=== PATIENT | female | born 1950 | race African-American/Black ===

== ENCOUNTER → 2021-08-19 | Outpatient (CLI) | payer MEDICARE ==
--- NOTE | 2021-08-20 10:33 | RAD ---
KUB without comparison for abdominal pain and constipation. FINDINGS: There is scattered abdominal bowel gas in a nonobstructive pattern with moderate amount of stool. Postsurgical changes are seen in the pelvis. Degenerative changes of the spine are mild and pr imarily involve L4-5 and L5-S1. IMPRESSION: 1. Nonobstructive nonspecific bowel gas pattern. Electronically signed by: Ethan Hinson MD (08/20/2021 10:31 AM) [id number]
== END ==
LOC: RAD 12:29
PROVIDERS: ATTEND Physician Assistant
DX: M47.817 Spondylosis without myelopathy or radiculopathy, lumbosacral region (principal); K59.00 Constipation, unspecified; Z98.890 Other specified postprocedural states
CPT/HCPCS: 74019

== ENCOUNTER → 2021-08-27 | Outpatient (CLI) | payer MEDICARE ==
--- NOTE | 2021-08-27 17:01 | RAD ---
EXAMINATION: XR LUMBAR SPINE 2-3V CLINICAL HISTORY: Severe lower back pain, no trauma TECHNIQUE: XR LUMBAR SPINE 2-3V Number of Images/Views: 3 COMPARISON: None FINDINGS: Normal anatomic alignment. No evidence of acute fracture or spondylolisthesis. Degenerative disc dise ase in lower lumbar spine, moderate at L4-5 and mild at L5-S1. Multilevel facet arthropathy, greatest at L4-5 and L5-S1. Degenerative changes bilateral SI joints, incompletely evaluated. Vascular calcif ications. Surgical clips projected over the right pelvis. IMPRESSION: Lumbar degenerative disc disease and facet arthropathy as described, greatest at L4-5 and L5-S1. Electronically signed by: Marcell Singh DO (08/27/2021 4:58 PM) [id number]
== END ==
LOC: RAD 15:51
PROVIDERS: ATTEND Specialist
DX: M47.817 Spondylosis without myelopathy or radiculopathy, lumbosacral region (principal); M51.37 Other intervertebral disc degeneration, lumbosacral region
CPT/HCPCS: 72100